=== PATIENT | male | born 1985 | race African-American/Black ===

== ENCOUNTER 2018-03-22 20:14 | Emergency (ER) | payer OTHER ==
[~2018-03-22] VITALS: Ht 182.9 cm; Wt 84.6 kg
[~2018-03-22 20:14] MED LIST: CLEOCIN300 MG PO; DAILY VITE1 EAC1 PO; DEPAKOTE500 MG PO; DESYREL100 MG PO; HYDROXYZINE HCL25 MG PO; METFORMIN HCL500 M1 PO; MIRTAZAPINE15 MG PO; NEURONTIN300 MG PO; PRAZOSIN HCL1 MG PO; RISPERDAL0.5 MG PO; ZOLOFT25 MG PO
[2018-03-22 20:48] LABS: HEMOGLOBIN 15.1 G/DL (12.5-16.6); MCH 29.2 PG (29.0-34.0); MCHC 33.6 G/DL (30.0-36.0); MCV 86.9 FL (86-99); PLATELET COUNT 361 K/uL (156-360); RBC DIS.WIDTH-CV 13.3 % (11.8-14.6); RBC DIS.WIDTH-SD 42.6 % (39-53); RED BLOOD COUNT 5.18 M/uL (4.00-5.50); WHITE BLOOD COUNT 12.5 K/uL (4.1-10.2)
[2018-03-22 20:55] LABS: ALBUMIN 4.2 g/dL (3.2-4.8); CHLORIDE 101 mEq/L (99-109); POTASSIUM 3.8 mEq/L (3.7-5.4); SODIUM 139 mEq/L (136-147)
[2018-03-22 20:57] LABS: GLUCOSE 106 mg/dL (70-99); TOTAL PROTEIN 7.8 g/dL (6.4-8.3)
[2018-03-22 20:59] LABS: TOTAL BILIRUBIN 0.5 mg/dL (0.0-1.0)
[2018-03-22 21:00] LABS: SERUM ETHYL ALCOHOL < 10 mg/dL
[2018-03-22 21:00] LABS: APPEARANCE CLEAR ((CLEAR)); BILIRUBIN NEGATIVE; BLOOD NEGATIVE; COLOR STRAW ((YELLOW)); GLUCOSE (STRIP) NEGATIVE; KETONES NEGATIVE; LEUKOCYTES NEGATIVE; NITRITE NEGATIVE; PROTEIN (STRIP) NEGATIVE; SPECIFIC GRAVITY 1.006 (1.000-1.030); UCUL ADDED? NO; UROBILINOGEN 0.2 MG/DL (0.2-1.0)
[2018-03-22 21:01] LABS: ALKALINE PHOSPHATASE 61 IU/L (3-129); CREATININE 0.8 mg/dL (0.6-1.3); GFR ESTIMATE (CALCULATED) > 59 mL/min/ (58.99-99999)
[2018-03-22 21:02] LABS: AST (GOT) 21 IU/L (2-34); UREA NITROGEN (BUN) 11 mg/dL (9-23)
[2018-03-22 21:04] LABS: ALT (GPT) 28 IU/L (3-49)
[2018-03-22 21:27] LABS: AMPHETAMINE NEGATIVE (500 ng/mL); BARBITURATES NEGATIVE (200 ng/mL); BENZODIAZEPINES NEGATIVE (150 ng/mL); BUPRENORPHINE NEGATIVE (10 ng/mL); COCAINE NEGATIVE (150 ng/mL); METHADONE NEGATIVE (200 ng/mL); METHAMPHETAMINE NEGATIVE (500 ng/mL); OPIATES (MORPHINE) NEGATIVE (100 ng/mL); OXYCODONE NEGATIVE (100 ng/mL); PHENCYCLIDINE NEGATIVE (25 ng/mL); PROPOXYPHENE NEGATIVE (300 ng/mL); THC CANNABINOIDS NEGATIVE (50 ng/mL); TRICYCLIC ANTIDEPRESSANTS NEGATIVE (300 ng/mL)
[2018-03-22] MEDS ORDERED: CLONIDINE HCL0.1 MG PO (22:03)
[2018-03-22] MEDS ORDERED: TRAZODONE HCL50 MG PO (22:03)
[2018-03-22 22:25] VITALS: BP 138/98
== END 2018-03-22 22:26 | disposition home or self-care (01) ==
LOC: EME 20:14
PROVIDERS: Emergency Medicine
DX: F11.20 Opioid dependence, uncomplicated (principal); B19.20 Unspecified viral hepatitis C without hepatic coma; F17.200 Nicotine dependence, unspecified, uncomplicated; Z79.84 Long term (current) use of oral hypoglycemic drugs; Z91.5 Personal history of self-harm
CPT/HCPCS: 80053; 81003; 85027; 90839; 99281; 99284; G0480